=== PATIENT | male | born 1965 | race Caucasian/White ===

== ENCOUNTER 2024-10-27 12:43 | Outpatient (CLI) | payer BC ==
[~2024-10-27 12:43] MED LIST: Magnevist 469MG/ML 20 ML VIAL ONE
== END 2024-10-27 12:44 | disposition home or self-care (01) ==
LOC: CSHMRI 12:43
PROVIDERS: ATTEND Urology
DX: R97.20 Elevated prostate specific antigen [PSA] (principal); R93.89 Abnormal findings on diagnostic imaging of other specified body structures; N40.2 Nodular prostate without lower urinary tract symptoms
CPT/HCPCS: 72197